=== PATIENT | male | born 1965 | race Caucasian/White ===

== ENCOUNTER 2024-12-27 15:34 | Outpatient (AMB) | payer OTHER, SELFPAY ==
--- NOTE | 2024-12-27 15:51 | A.OFFPC_ITS ---
Vital Signs 12/27/24 15:57 Height 6 ft 2 in Weight 270 lb 2 oz BMI 34.7 BP 98/70 Blood Pressure Location Lt brachial Position Sitting Respiration 16 Pulse 87 Pulse Source Pulse Oximeter Temp 97.3 F Temp Source Oral Pulse Oximetry (%) 93 Oxygen Delivery Method Room Air Intake Visit Reasons: Est. Care Intake Note: New patient visit Senior Technical Program Manager Required: No Allergies Penicillins Allergy (Unknown, Verified 12/27/24 15:51) Unknown adhesive bandage Allergy (Unknown, Uncoded 12/27/24 15:51) urticaria Tobacco use date assessed: 12/27/24 Dental Screening Dental Screen Date: 12/27/24 Did you have a dental visit in the last 12 months?: Yes Did you have a dental problem in the last 6 months where you did not have access to dental care?: No Was dental information given to patient?: Patient has dentist HPI HPI Comments History of Present Illness Details 59 year old male with a past medical his tory of diabetes, hypertension, hyperlipidemia presenting to [facility]. Was following with Dr Rizzo and Dr Wasserman DM: On glyburide, jardiance, ozempic. Last A1C was ~1 month ago. Believes it was 9%. On silvia 2 sensors. Did not bring reader today CV: on toprol 25mg, crestor 20mg, ASA Colon cancer: [facility] Dr Bailey ~ 1 year ago ROS CONSTITUTIONAL: Denies weight loss, fever and chills. HEENT: Denies changes in vision and hearing. RESPIRATORY: Denies SOB and cough. CV: Denies palpitations and CP GI: Denies abdominal pain, nausea, vomiting and diarrhea. : Denies dysuria and urinary frequency. MSK: Denies new myalgia and joint pain. SKIN: Denies rash and pruritus. NEUROLOGICAL: Denies headache PSYCHIATRIC: Denies recent changes in mood. PHYSICAL EXAM: GENERAL: Alert and oriented x 3. NAD EYES: EOMI. Anicteric. HENT: Moist mucous membranes. No scleral icterus. No cervical lymphadenopathy. LUNGS: Clear to auscultation bilaterally. CARDIOVASCULAR: Regular rate and rhythm. No murmur. No JVD. ABDOMEN: Soft, non-tender +bs EXTREMITIES: No edema. Non-tender. SKIN: No rashes or lesions. Warm. NEUROLOGIC: No focal neurological deficits. CN II-XII grossly intact PSYCHIATRIC: Cooperative. Appropriate mood and affect [facility] Surgical History No pertinent past surgical history Family History Mother Diabetes mellitus Myocardial infarction Skin cancer Sister Myocardial infarction Brother Myocardial infarction Social History Housing: House Patient Tobacco Use Status: Former Tobacco user (quit in 1999) Cigarette Packs Per Day: 2 Years Smoked: 20 e-Cigarette/Vaping Use: Never Used Second Hand Smoke Exposure: No service: No Current occupational status: employed Current occupation: fabrication technician Current occupational exposures/hazards: No Cognitive needs: No Hearing needs: No Vision needs: No Physical exam (Primary Care) Vital Signs: Last Vital Signs Temp 97.3 F 12/27/24 15:57 Pulse 87 12/27/24 15:57 Resp 16 12/27/24 15:57 BP 98/70 12/27/24 15:57 Pulse Ox 93 12/27/24 15:57 Oxygen Delivery Method Room Air 12/27/24 15:57 BMI result Body Mass Index 34.7 Tobacco/Smoking Status: Tobacco use Status Tobacco use date assessed 12/27/24 12/27/24 16:01 Patient Tobacco Use Status Former Tobacco user (quit in 12/27/24 16:01 1999) e-Cigarette/Vaping Use Never Used 12/27/24 16:01 Coding Level of Care Code New Pt Level 4 (17112) Complex EM visit Add On G2211 Diagnoses Type 2 diabetes mellitus with hyperglycemia, without long-term current use of insulin E11.65 Diabetes mellitus type: type 2 Diabetes mellitus long-term insulin use: without long-term use Diabetes mellitus complication status: with hyperglycemia Primary hypertension I10 Hypertension type: primary hypertension Hyperlipidemia, unspecified hyperlipidemia type E78.5 Hyperlipidemia type: unspecified Assessment & Plan Assessment & Plan (1) Diabetes: Code(s): E11.9 - Type 2 diabetes mellitus without complications Category: Medical Qualifiers: Diabetes mellitus type: type 2 Diabetes mellitus intermediate school teacher insulin use: without long-term use Diabetes mellitus complication status: with hyperglycemia Qualified Code(s): E11.65 - Type 2 diabetes mellitus with hyperglycemia (2) Hypertension: Code(s): I10 - Essential (primary) hypertension Category: Medical Qualifiers: Hypertension type: primary hypertension Qualified Code(s): I10 - Essential (primary) hypertension (3) Hyperlipidemia: Code(s): E78.5 - Hyperlipidemia, unspecified Category: Medical Qualifiers: Hyperlipidemia type: unspecified Qualified Code(s): E78.5 - Hyperlipidemia, unspecified Plan 59 year old to establish care DM uncontrolled-increase ozempic to 2mg weekly Continue jardiance, glyburide. Recheck A1C 2 months. bring meter HTN well controlled on current medications. Family history of early CAD/[place]-EKG next appt Orders: Orders Complete Blood Count Auto Diff Today E11.9 - Type 2 diabetes mellitus without complications, E78.5 - Hyperlipidemia, unspecified, I10 - Essential (primary) hypertension, Z12.5 - Encounter for screening for malignant neoplasm of prostate Comprehensive Met. Panel Today E11.9 - Type 2 diabetes mellitus without complications, E78.5 - Hyperlipidemia, unspecified, I10 - Essential (primary) hypertension, Z12.5 - Encounter for screening for malignant neoplasm of prostate Lipid Panel Today E11.9 - Type 2 diabetes mellitus without complications, E78.5 - Hyperlipidemia, unspecified, I10 - Essential (primary) hypertension, Z12.5 - Encounter for screening for malignant neoplasm of prostate Prostate Specific Antigen Today E11.9 - Type 2 diabetes mellitus without complications, E78.5 - Hyperlipidemia, unspecified, I10 - Essential (primary) hypertension, Z12.5 - Encounter for screening for malignant neoplasm of prostate Referrals Gastroenterology Referral Z12.11 - Encounter for screening for malignant neoplasm of colon Medications: New semaglutide (Ozempic) 2 mg (0.75 mL) subcut QWEEK 9 mL 3RF FreeStyle Silvia 2 Plus Sensor (blood-glucose sensor) every 15 days 6 ea 3RF NS E11.9 - Type 2 diabetes mellitus without complications, I10 - Essential (primary) hypertension
[2024-12-27 15:57] VITALS: BP 98/70; PULSE 87; RESP 16; TEMP 36.3; O2SAT 93; BMI 34.7
--- OUTSIDE RECORDS SUMMARY | 2024-12-27 18:05 | XMS_ITS | Clinical Summary ---
Author Organization [address] Address [address] [place] [phone] Phone Care Team Providers Care Glost Kiln Operator Name Role Phone Unavailable Primary Care Provider Unavailabl e Allergies Active Allergy Reactions Criticality Noted Date Comments Adhesive Hives,Rash 12/24/2010 Other reaction(s): Rash/Dermatitis Penicillin G Swelling 12/24/2010 Other reaction(s): Numbness, tingling or swelling of the lips, tongue or mouth Medications losartan (COZAAR) 50 mg tablet Take 1 tablet (50 mg total) by mouth 1 (one) time each day. 11/02/2023 Active LORATADINE ORAL Take by mouth. Active metoprolol succinate (TOPROL-XL) 25 mg 24 hr tablet Take 1 tablet (25 mg total) by mouth 1 (one) time each day. 07/22/2023 Active rosuvastatin (CRESTOR) 20 mg tablet Take 1 tablet (20 mg total) by mouth 1 (one) time each day. 07/02/2023 Active ASPIRIN ORAL Take by mouth. Active Jardiance 25 mg tablet TAKE ONE TABLET BY MOUTH EVERY DAY 90 tablet 1 07/18/2024 Active glyBURIDE (DIABETA) 5 mg tablet Take 1 tablet (5 mg total) by mouth 1 (one) time each day. 90 tablet 1 07/18/2024 Active FreeStyle Silvia 14 Day Sensor kit 1 EA. 07/26/2024 A ctive semaglutide (OZEMPIC) 1 mg/dose (4 mg/3 mL) injection penIndications:Ty pe 2 DM with CKD stage 3 and hypertension (CMS/HCC V24, CMS/HCC V28) Use 1mg once weekly 3 mL 2 09/20/2024 Active Active Problems Problem Noted Date Diagnosed Date CKD (chronic kidney disease) stage 2, GFR 60-89 ml/min 07/27/2024 Essential (primary) hypertension 09/22/2023 Hemothorax on right 09/22/2023 Overview (04/14/2024): spontaneous x 2 AZAEL (obstructive sleep apnea) 09/22/2023 Pure hypercholesterolemia 09/22/2023 Type 2 DM with CKD stage 3 a nd hypertension (CMS/HCC V24, CMS/HCC V28) 09/22/2023 Depression 12/24/2010 Overview (04/14/2024): Receiving therapy Encounters Date Type Department Care Team Description 12/26/2024 Telephone Endocrinology [address] [phone] Sonia Dexter PA prior authorization (ozempic) 12/14/2024 Telephone Pulmonolgy [address] [place] [phone] Malik Encarnacion MD dme request 10/05/2024 Telephone Endocrinology [address] [phone] Sonia Dexter PA prior auth 09/26/2024 Telephone Endocrinology [address] [phone] Sonia Dexter PA Medication Problem from Last 3 Months Surgical History Surgery Date Site/Laterality Comments OTHER SURGICAL HISTORY PROCEDURE: OR RPR PARAESOPH HIATAL HERNIA THORCOABDOM W/MESH KNEE ARTHROSCOPY W/ MENISCAL REPAIR PROCEDURE: OR ARTHROSCOPY KNEE W/MENISCUS RPR MEDIAL/LATERAL; COMMENT: left knee Medical History Medical History Date Comments Hemothorax on right DX:Hemothora x on right; COMMENT: spontaneous x 2 AZAEL (obstructive sleep apnea) DX :AZAEL (obstructive sleep apnea) Essential (primary) hypertension DX:Essential (primary) hypertension Type 2 DM with CKD stage 3 a nd hypertension (CMS/HCC V24, CMS/HCC V28) DX:Type 2 DM w ith CKD stage 3 and hypertension (HCC) Family History Relation Name Status Comments Father Alive Brain tmr benig n, CAD s/p quadruple bypass Mother Alive DM 2, CAD with first [place] in 60s Sister Alive DM 2 Social History Tobacco Use Types Packs/Day Years Used Date Smoking Tobacco: Former Cigarettes 0 07/13/1978 - 07/13/1985 Tobacco Cessation:Counseling Given: Not Answered Alcohol Use Standard Drinks/Week Comments Not Currently 0 (1 standard drink = 0.6 oz pur e alcohol) Sex and Gender Information Value Date Recorded Sex Assigned at Not on file Legal Sex Male 2:53 AM EST Gender Identity Not on file Sexual Orientation Not on file Obstetrics History Last Filed Vital Signs Vital Sign Reading Time Taken Comments Blood Pressure 129/83 09/20/2024 4:24 PM EDT Pulse 94 09/20/2024 4:24 PM EDT Temperature 36.2 ??C (97.2 ??F) 09/20/2024 4:24 PM ED T Respiratory Rate - - Oxygen Saturation 95% 09/20/2024 4:24 PM EDT Inhaled Oxygen Concentration - - Weight 125 kg (274 lb 12.8 oz) 09/20/2024 4:24 P M EDT Height 188 cm (6' 2 ) 09/20/2024 4:24 PM EDT Body Mass Index 35.28 09/20/2024 4:24 PM EDT Plan of Treatment Upcoming Encounters Date Type Department Care Team (Late st Contact Info) Description 02/15/2025 3:15 PM EDT Office Visit Nephrology [address] [phone] Lane Veloz MD [address] [phone] 02/28/2025 8:30 AM EDT Office Visit Pulmonolgy - [place] [address] [phone] Malik Encarnacion MD 175 [facility] [address] [place] [address] Health Maintenance Due Date Last Done Comments Hepatitis B Vaccines (1 of 3 - 19+ 3-dose series) 1984 Pneumococcal Vaccine: 50+ Years (1 of 2 - PCV) 1984 Pneumococcal Vaccine: Pediatrics (0 to 5 Years) and At-Risk Patients (6 to 64 Years) (1 of 2 - PCV) 1984 Zoster Vaccines (1 of 2) 1984 COVID-19 Vaccine (3 - Modern a risk series) 11/22/2020 10/25/2020, 09/27/2020 Depression Screening 06/15/2022 HIV Screening 06/15/2022 Hepatitis C Screening 06/15/2022 Social Influencers of Health Screening 06/15/2022 Diabetes: Annual Retina Eye Exam 07/28/2024 07/28/2023 Diabetes: Blood Sugar Contro l Test (HGBA1C) 08/20/2024 02/18/2024, 02/18/2024 Diabetes: Annual Urine Albumin-Creatinine Ratio (uACR) 10/15/2024 10/16/2023 Diabetes: Annual GFR (Glomerular Filtration Rate) 02/17/2025 02/18/2024, 02/18/2024 Hypertension/CHF/CAD Annual BMP Blood Test 02/17/2025 02/18/2024, 02/18/2024 Diabetes: Annual Foot Exam 03/02/2025 03/02/2024 Influenza Vaccine (Season Ended) 2025 05/30/2022 Cholesterol Screening (Lipid Panel) 10/15/2028 10/16/2023 Colorectal Cancer Screening: Colonoscopy 12/19/2031 12/18/2021 DTaP,Tdap,and Td Vaccines (2 - Td or Tdap) 12/10/2032 12/10/2022 RSV Immunization Adult Patients (1 - 1-dose 75+ series) 2040 HIB Vaccines Aged Out No longer eligi ble based on patient's age to complete this topic HPV Vaccines Aged Out No longer eligi ble based on patient's age to complete this topic Hepatitis A Vaccines Aged Out No long er eligible based on patient's age to complete this topic IPV Vaccines Aged Out No longer eligi ble based on patient's age to complete this topic MMR Vaccines Aged Out No longer eligi ble based on patient's age to complete this topic Meningococcal ACWY Vaccine Aged Out N o longer eligible based on patient's age to complete this topic Meningococcal B Vaccine Aged Out No l onger eligible based on patient's age to complete this topic RSV Immunization Patients Under 20 months Aged Out No longer eligible b ased on patient's age to complete this topic Varicella Vaccines Aged Out No longer eligible based on patient's age to complete this topic Procedures Procedure Name Priority Date/Time Associated Diagnosis Comments DIABETES FOOT EXAM Routine 03/02/2024 ANNUAL BMP BLOOD TEST Routine 02/18/2024 HEMOGLOBIN A1C Routine 02/18/2024 URINE ALBUMIN CREATININE RATIO Routine 10/16/2023 LIPID PANEL Routine 10/16/2023 DIABETES EYE EXAM Routine 07/28/2023 COLONOSCOPY Routine 12/18/2021 from Last 3 Months or Most Recently Relevant to Health Maintenance Results * Diabetes Foot Exam (03/02/2024) Pathologist [facility] Diabetes: Annual Foot Exam Abstracted Result [facility] Provider HEALTH MAINTENANCE Final Result * Annual BMP Blood Test (02/18/2024) Pathologist [facility] Annual BMP Blood Test Abstracted Result [facility] Provider HEALTH MAINTENANCE Final Result * (ABNORMAL) Hemoglobin A1c (02/18/2024) [facility] Hemoglobin A1C 10.3(A) <=6.5 % Blood Venous blood specimen / Unknown Historical Provider LAB BLOOD ORDERABLES Willa l Result * Urine Albumin Creatinine Ratio (10/16/2023) Pathologist [facility] Urine Albumin Creatinine Ratio Abstracted [facility] Provider HEALTH MAINTENANCE Final Result * (ABNORMAL) Lipid panel (10/16/2023) [facility] LDL/HDL Ratio 4 0 - 4 Triglycerides 268(A) 0 - 150 mg/dL Cholesterol 155 0 - 200 mg/dL HDL 37(A) >=40 mg/dL LDL Cholesterol 65 0 - 100 mg/dL Blood Venous blood specimen / Unknown Historical Provider LAB BLOOD ORDERABLES Willa l Result * Diabetes Eye Exam (07/28/2023) Diabetes: Annual Retina Eye Exam Abstracted Historical Provider HEALTH MAINTENANCE Final Result * Colonoscopy (12/18/2021) Colonoscopy Abstracted, No Interpretation Anatomical Region Laterality Modality Other Historical Provider HEALTH MAINTENANCE Final Result from Last 3 Months or Most Recently Relevant to Health Maintenance [place] [phone] [facility]
== END 2024-12-27 16:20 | disposition home or self-care (01) ==
LOC: HO.HMCFM 15:35
PROVIDERS: Visit Provider Internal Medicine
DX: E11.65 Type 2 diabetes mellitus with hyperglycemia (principal); I10 Essential (primary) hypertension; E78.5 Hyperlipidemia, unspecified

== ENCOUNTER 2025-02-28 09:28 | Outpatient (REF) | payer OTHER, SELFPAY ==
--- OUTSIDE RECORDS SUMMARY | 2025-02-28 10:30 | XMS_ITS | Clinical Summary ---
Author Organization [facility] Address [address] [place] [address] Care Team Providers Care Adoption Manager Name Role Phone Alma Wasserman MD Primary Care Provider [phone] Allergies Active Allergy Reactions Criticality Noted Date Comments Penicillin G Swelling 12/24/2010 Other reaction(s): Numbness, tingling or swelling of the lips, tongue or mouth Penicillins Anaphylaxis High 07/08/2021 Tape Hives 12/24/2010 Other reaction(s): Rash/Dermatitis Medications Medication Sig Dispensed Refills Start Date End Date Status dulaglutide (Trulicity) 0.75 MG/0.5ML subcutaneous pen-injector Inject 0.75 mg under the skin once a week. 0 Active aspirin 81 MG EC tablet Take 81 mg by mouth daily. 0 Active losartan (COZAAR) 100 MG tablet Take 100 mg by mouth daily. 0 Active loratadine (Claritin) 10 MG tablet Take 10 mg by mouth daily. 0 Active Jardiance 10 MG tablet Take 10 mg by mouth daily. 0 11/29/2021 Active Active Problems No known active problems Social History Tobacco Use Types Packs/Day Years Used Date Smoking Tobacco: Former Cigarettes Q uit: 07/13/1999 Smokeless Tobacco: Never Alcohol Use Standard Drinks/Week Comments Not Currently 0 (1 standard drink = 0.6 oz pur e alcohol) Sex and Gender Information Value Date Recorded Sex Assigned at Not on file Gender Identity Not on file Sexual Orientation Not on file Job Start Date Occupation Industry Not on file Not on file Not on file Last Filed Vital Signs Vital Sign Reading Time Taken Comments Blood Pressure 114/72 01/06/2022 4:04 PM EDT Pulse 97 01/06/2022 4:04 PM EDT Temperature 36.3 C (97.4 F) 01/06/2022 4:04 PM EDT Respiratory Rate - - Oxygen Saturation 99% 01/06/2022 4:04 PM EDT Inhaled Oxygen Concentration - - Weight 117.9 kg (260 lb) 01/06/2022 4:04 PM EDT Height 188 cm (6' 2 ) 01/06/2022 4:04 PM EDT Body Mass Index 33.38 01/06/2022 4:04 PM EDT Plan of Treatment Health Maintenance Due Date Last Done Comments Hepatitis B Vaccines (1 of 3 - 3-dose series) 1965 Hepatitis C Screening 1965 COVID-19 Vaccine (#1) 06/17/1966 Depression Screening 1977 BMI Counseling 12/17/1983 Preventative Health Evaluation 12/17/1983 DTap / Tdap / Td (1 - Tdap) 1984 Colon Cancer Screening (Colonoscopy) 2010 Shingrix-Zoster Vaccine (1 of 2) 12/17/2015 Influenza Vaccine (#1) 2025 Pneumococcal Vaccine Aged Out No long er eligible based on patient's age to complete this topic RSV Ped < 20 months Aged Out No longe r eligible based on patient's age to complete this topic Care Teams Adoption Manager Relationship Specialty Start Date End Date [facility], Alma A, MD [address] [place] [address] PCP - General Internal Medicine 07/23/17
--- OUTSIDE RECORDS SUMMARY | 2025-02-28 10:30 | XMS_ITS | Clinical Summary ---
Author Organization [address] Address [address] [place] [phone] Phone Care Team Providers Care Developer Programmer Analyst Name Role Phone Ольга Gayle MD Primary Care Provider [phone] Allergies Active Allergy Reactions Criticality Noted Date Comments Adhesive Hives,Rash 12/24/2010 Other reaction(s): Rash/Dermatitis Penicillin G Swelling 12/24/2010 Other reaction(s): Numbness, tingling or swelling of the lips, tongue or mouth Medications losartan (COZAAR) 50 mg tablet Take 1 tablet (50 mg total) by mouth 1 (one) time each day. 4 Active LORATADINE ORAL Take by mouth. Active metoprolol succinate (TOPROL-XL) 25 mg 24 hr tablet Take 1 tablet (25 mg total) by mouth 1 (one) time each day. 4 Active rosuvastatin (CRESTOR) 20 mg tablet Take 1 tablet (20 mg total) by mouth 1 (one) time each day. 3 Active ASPIRIN ORAL Take by mouth. Active Jardiance 25 mg tablet TAKE ONE TABLET BY MOUTH EVERY DAY 90 tablet 1 5 Active glyBURIDE (DIABETA) 5 mg tablet Take 1 tablet (5 mg total) by mouth 1 (one) time each day. 90 tablet 1 5 Active FreeStyle Silvia 14 Day Sensor kit 1 EA. 5 Active semaglutide (OZEMPIC) 1 mg/dose (4 mg/3 mL) injection penIndications:Ty pe 2 DM with CKD stage 3 and hypertension (CMS/HCC V24, CMS/HCC V28) Use 1mg once weekly 3 mL 2 5 Active FreeStyle Silvia 2 Plus Sensor device APPLY AND REPLACE EVERY 15 DAYS 5 Active Active Problems Problem Noted Date Diagnosed [...] Encounters Date Type Department Care Team Description [facility]/07[facility] [address] [phone] Malik Encarnacion MD durable medical equipment 12/26/2024 Telephone Endocrinology - [place] [address] [place] [phone] Sonia Dexter PA prior authorization (ozempic) 12/14/2024 Telephone Pulmonolgy [facility] [address] [phone] Malik Encarnacion MD dme request from Last 3 Months Surgical History Surgery Date Site/Laterality Comments OTHER SURGICAL HISTORY PROCEDURE: [place] RPR PARAESOPH HIATAL HERNIA THORCOABDOM W/MESH KNEE ARTHROSCOPY W/ MENISCAL REPAIR PROCEDURE: MI ARTHROSCOPY KNEE W/MENISCUS RPR MEDIAL/LATERAL; COMMENT: left [...] Name Status Comments Father Alive Brain tmr kim rolon, CAD s/p quadruple bypass Mother Alive DM 2, CAD with first [place] in 60s Sister Alive DM 2 Social [...] 94 09/20/2024 4:24 PM EDT Temperature 36.2 C (97.2 F) 09/20/2024 4:24 PM EDT Respiratory Rate - - Oxygen Saturation 95% 09/20/2024 4:24 PM EDT Inhaled Oxygen Concentration - - Weight 125 kg (274 lb 12.8 oz) 09/20/2024 4:24 P M EDT Height 188 cm (6' 2 ) 09/20/2024 4:24 PM EDT Body Mass Index 35.28 09/20/2024 4:24 PM EDT Plan of Treatment Upcoming Encounters Date Type Department Care Team (Late st Contact Info) Description 08/16/2025 3:00 PM EST Office Visit Nephrology [facility] [address] [place] [phone] [address] Veloz MD 100 [facility] [address] [place] [address] Health Maintenance Due Date Last Done Comments Hepatitis B Vaccines (1 of 3 - 19+ 3-dose series) 1984 Pneumococcal Vaccine: 50+ Years (1 of 2 - PCV) 1984 Zoster Vaccines (1 of 2) 1984 COVID-19 Vaccine (3 - Modern a risk series) 11/22/2020 10/25/2020, 09/27/2020 HIV Screening 06/15/2022 Hepatitis C Screening 06/15/2022 Social Influencers of Health Screening 06/15/2022 Depression Screening 07/13/2024 Diabetes: Annual Retina Eye Exam 07/28/2024 07/28/2023 Diabetes: Blood Sugar Contro l Test (HGBA1C) 08/20/2024 02/18/2024, 02/18/2024 Diabetes: Annual Urine Albumin-Creatinine Ratio (uACR) 10/15/2024 10/16/2023 Diabetes: Annual GFR (Glomerular Filtration Rate) 02/17/2025 02/18/2024, 02/18/2024 Hypertension/CHF/CAD Annual BMP Blood Test 02/17/2025 02/18/2024, 02/18/2024 Diabetes: Annual Foot Exam 03/02/2025 03/02/2024 Influenza Vaccine (#1) 2025 05/30/2022 Cholesterol Screening (Lipid Panel) 10/15/2028 [...] Maintenance Results * Diabetes Foot Exam (03/02/2024) [facility] Diabetes: Annual Foot Exam Abstracted Result [facility] Provider HEALTH MAINTENANCE Final Result * Annual BMP Blood Test (02/18/2024) [facility] Annual BMP Blood Test Abstracted Result [facility] HEALTH MAINTENANCE Final Result * (ABNORMAL) Hemoglobin A1c (02/18/2024) [facility] Hemoglobin A1C 10.3(A) <=6.5 % Blood Venous blood specimen / Unknown Result [facility] Provider LAB BLOOD ORDERABLES Willa l Result * Urine Albumin Creatinine Ratio (10/16/2023) [facility] Urine Albumin Creatinine Ratio Abstracted Result [facility] Provider HEALTH MAINTENANCE Final Result * (ABNORMAL) Lipid panel (10/16/2023) [facility] LDL/HDL Ratio 4 0 - 4 Triglycerides 268(A) 0 - 150 mg/dL Cholesterol 155 0 - 200 mg/dL HDL 37(A) >=40 mg/dL LDL Cholesterol 65 0 - 100 mg/dL Blood Venous blood specimen / Unknown Result [facility] Provider LAB BLOOD ORDERABLES Willa l Result * Diabetes Eye Exam (07/28/2023) [facility] Diabetes: Annual Retina Eye Exam Abstracted us Historical Provider HEALTH MAINTENANCE Final Result * Colonoscopy (12/18/2021) [facility] Colonoscopy Abstracted, No Interpretation Anatomical Region Laterality Modality Other us Historical Provider HEALTH MAINTENANCE Final Result from Last 3 Months or Most Recently Relevant to Health Maintenance [place] [phone] [employer] [facility] [facility] Care Teams Developer Programmer Analyst Relationship Specialty Start Date End Date Ольга Gayle MD [address] [place] [phone] PCP - General Internal Medicine 02/14/25
[2025-02-28 11:06] LABS: MANUAL DIFF FLAG NO
[2025-02-28 11:15] LABS: Hematocrit 46.2 % (42.0-52.0); Hemoglobin 15.1 g/dl (14.0-18.0); Imm Gran Abs Auto 0.02 X10*3/uL (0.00-0.03); Imm Gran Pct Auto 0.3 % (0.0-0.4); Lymphocytes Absolute Auto 1.9 X10*3/uL (1.2-4.9); Mean Corpuscular HGB Conc 32.7 g/dl (31.0-36.0); Mean Corpuscular Hemoglobin 29.4 pg (27.0-33.0); Mean Corpuscular Volume 89.9 fL (80.0-98.0); NRBC Abs Auto 0.000 X10*3/uL (0.0-0.012); NRBC Pct Auto 0.0 /100WBC (0.0-0.2); Platelet Count 251 X10*3/uL (160-400); Red Blood Count 5.14 X10*6/uL (4.60-5.80); White Blood Count 7.8 X10*3/uL (4.8-10.8)
[2025-02-28 12:02] LABS: Prostate Specific Antigen 3.01 ng/mL (<0.05-4.0)
[2025-02-28 12:12] LABS: Alanine Aminotransferase 47 U/L (0-40); Albumin Level 4.4 g/dL (3.5-5.0); Alkaline Phosphatase 78 U/L (39-117); Anion Gap 14 (12-20); Aspartate Amino Transferase 26 U/L (5-37); Blood Urea Nitrogen 24 mg/dL (9-16); Calcium 9.5 mg/dL (8.4-10.2); Carbon Dioxide 25 mmol/L (22-29); Chloride 105 mmol/L (96-108); Cholesterol 155 mg/dL (<200); Estimated Glomerular Filt Rate > 60; HDL Cholesterol 31 mg/dL (>40); Potassium 3.8 mmol/L (3.3-5.1); Sodium 140 mmol/L (135-145); Total Protein 7.0 g/dL (6.5-8.0); Triglycerides 540 mg/dL (<150)
== END 2025-02-28 09:29 | disposition home or self-care (01) ==
LOC: HO.WFDLDS 09:28
PROVIDERS: Visit Provider Internal Medicine
DX: E11.9 Type 2 diabetes mellitus without complications (principal); I10 Essential (primary) hypertension; E78.5 Hyperlipidemia, unspecified; Z12.5 Encounter for screening for malignant neoplasm of prostate
CPT/HCPCS: 36415; 80053; 80061; 84153; 85025

== ENCOUNTER 2025-03-06 15:07 | Outpatient (AMB) | payer OTHER, SELFPAY ==
--- NOTE | 2025-03-06 15:20 | A.OFFPC_ITS ---
Vital Signs 03/06/25 15:23 Height 6 ft 2 in Weight 266 lb 4 oz BMI 34.2 BP 112/62 Blood Pressure Location Lt femoral Position Sitting Respiration 16 Pulse 78 Pulse Source Pulse Oximeter Pulse Oximetry (%) 94 Oxygen Delivery Method Room Air Intake Visit Reasons: DM Intake Note: Diabetes follow up Welt Pocket Machine Operator Required: No Allergies Penicillins Allergy (Unknown, Verified 03/06/25 15:22) Unknown adhesive bandage Allergy (Unknown, Uncoded 03/06/25 15:22) urticaria Tobacco use date assessed: 03/06/25 Dental Screening Dental Screen Date: 12/27/24 HPI HPI Comments History of Present Illness Details 59 year old male with a past medical his tory of diabetes, hypertension, hyperlipidemia presenting for follow up DM: On glyburide, jardiance, ozempic-this was increased at last visit to 2mg. A1C is 7.3% from 9%. Last A1C was ~1 month ago. Believes it was 9%. On valerie 2 sensors. Did not bring reader today. Lost 4 pounds since his last visit. CV: on toprol 25mg, crestor 20mg, ASA Colon cancer: [facility] ~ 1 year ago ROS CONSTITUTIONAL: Denies weight loss, fever and chills. HEENT: Denies changes in vision and hearing. RESPIRATORY: Denies SOB and cough. CV: Denies palpitations and CP GI: Denies abdominal pain, nausea, vomiting and diarrhea. : Denies dysuria and urinary frequency. MSK: Denies new myalgia and joint pain. SKIN: Denies rash and pruritus. NEUROLOGICAL: Denies headache PSYCHIATRIC: Denies recent changes in mood. PHYSICAL EXAM: GENERAL: Alert and oriented x 3. NAD EYES: EOMI. Anicteric. HENT: Moist mucous membranes. No scleral icterus. No cervical lymphadenopathy. LUNGS: Clear to auscultation bilaterally. CARDIOVASCULAR: Regular rate and rhythm. No murmur. No JVD. ABDOMEN: Soft, non-tender +bs EXTREMITIES: No edema. Non-tender. SKIN: No rashes or lesions. Warm. NEUROLOGIC: No focal neurological deficits. CN II-XII grossly intact PSYCHIATRIC: Cooperative. Appropriate mood and affect [facility] Surgical History No pertinent past surgical history Family History Mother Diabetes mellitus Myocardial infarction Skin cancer Sister Myocardial infarction Brother Myocardial infarction Social History Housing: House Patient Tobacco Use Status: Former Tobacco user Cigarette Packs Per Day: 2 Years Smoked: 20 e-Cigarette/Vaping Use: Never Used Second Hand Smoke Exposure: No service: No Current occupational status: employed Current occupation: data center technician Current occupational exposures/hazards: No Cognitive needs: No Hearing needs: No Vision needs: No Questionnaire PHQ-9 Over the last 2 weeks, how often have you been bothered by any of the following problems? 1. Little interest or pleasure in doing things: not at all 2. Feeling down, depressed, or hopeless: not at all 3. Trouble falling or staying asleep, or sleeping too much: not at all 4. Feeling tired or having little energy: not at all 5. Poor appetite or overeating: not at all 6. Feeling bad about yourself - or that you are a failure or have let yourself or your family down: not at all 7. Trouble concentrating on things, such as reading the newspaper or watching television: not at all 8. Moving or speaking so slowly that other people could have noticed. Or the opposite - being so fidgety or restless that you have been moving around a lot more than usual: not at all 9. Thoughts that you would be better off or of hurting yourself in some way: not at all Total score: 0 Source: Developed by Drs. Kamlesh Castañeda, Alie Lopez, Camron Alanis and colleagues, with an educational yomaira from [employer]. Thrive Questionnaire Date Thrive assessed: 02/28/25 I am a: Patient What is your living situation today?: I have a steady place to live Within the past 12 months, did the food you bought not last and you didn't have the money to get more?: Often true Within the past 12 months, did you worry whether your food would run out before you got money to buy more?: Never true Do you have trouble paying for medicines?: No Do you have trouble getting transportation to medical appointments?: No Do you have trouble paying your heating and electricity bill?: No Do you have trouble taking care of your child, family member or friend?: No Do you have trouble with day-to-day activities such as bathing, preparing meals, shopping, managing finances, etc.?: No Are you currently unemployed and looking for a job?: No Are you interested in more education?: No Please select the resources that you would like help with: None Currently or been in a relationship where the following occur: No concerns reported THRIVE Score: 1 AUDIT C Alcohol Use Questionnaire (AUDIT-C) 1. How often do you have a drink containing alcohol?: Monthly or less 2. How many drinks containing alcohol do you have on a typical day when you are drinking?: 1 or 2 3. How often do you have six or more drinks on one occasion?: Never Total Score: 1 ALFREDITO-7 AMB Questionnaire ALFREDITO-7 Feeling nervous, anxious, or on edge: 0 = Not at all Not being able to stop or control worryin = Not at all Worrying too much about different things: 0 = Not at all Trouble relaxin = Not at all Being so restless that it is hard to sit still: 0 = Not at all Becoming easily annoyed or irritable: 0 = Not at all Feeling afraid as if something awful might happen: 0 = Not at all Total ALFREDITO-7 score (0-4 normal; 5-9 mild; 10-14 moderate; 15-21 severe): 0 Source: Developed by Drs. Kamlesh Castañeda, Alie Lopez, Camron Alanis and colleagues, with an educational yomaira from [employer]. Physical exam (Primary Care) Vital Signs: Last Vital Signs Pulse 78 03/06/25 15:23 Resp 16 03/06/25 15:23 BP 112/62 03/06/25 15:23 Pulse Ox 94 03/06/25 15:23 Oxygen Delivery Method Room Air 03/06/25 15:23 BMI result Body Mass Index 34.2 Tobacco/Smoking Status: Tobacco use Status Tobacco use date assessed 03/06/25 03/06/25 15:26 Patient Tobacco Use Status Former Tobacco user 03/06/25 15:26 e-Cigarette/Vaping Use Never Used 03/06/25 15:26 PHQ-9: PHQ-9 Score PHQ-9: Total score 0 03/06/25 15:26 Thrive Assessment: Date of Thrive Assessment Date Thrive assessed 02/28/25 03/06/25 15:26 Currently or been in a relationship where the following occur: No concerns reported Results AMB Hemoglobin A1c AMB Hemoglobin A1c 7.3 % Last Edit by Katy Almendarez CMA on 03/06/25 15:37 Coding Assessment & Plan Assessment & Plan Orders: Orders Hemoglobin A1c Today E11.65 - Type 2 diabetes mellitus with hyperglycemia, E78.5 - Hyperlipidemia, unspecified, I10 - Essential (primary) hypertension AMB Hemoglobin A1c Today E11.65 - Type 2 diabetes mellitus with hyperglycemia Comprehensive Met. Panel Today E11.65 - Type 2 diabetes mellitus with hyperglycemia, E78.5 - Hyperlipidemia, unspecified, I10 - Essential (primary) hypertension Lipid Panel Today E11.65 - Type 2 diabetes mellitus with hyperglycemia, E78.5 - Hyperlipidemia, unspecified, I10 - Essential (primary) hypertension Microalbumin, Random (w Creat) Today E11.65 - Type 2 diabetes mellitus with hyperglycemia, E78.5 - Hyperlipidemia, unspecified, I10 - Essential (primary) hypertension
[2025-03-06 15:23] VITALS: BP 112/62; PULSE 78; RESP 16; O2SAT 94; BMI 34.2
--- OUTSIDE RECORDS SUMMARY | 2025-03-06 16:48 | XMS_ITS | Encounter Summary ---
Author Organization [facility] Address [address] [place] [phone] Care Team Providers Care Logistics Director Name Role Phone Ольга Gayle MD Primary Care Provider [phone] Reason for Visit * Reason Onset Date Comments durable medical equipment 02/07/2025 Encounter Details Date Type Department Care Team (Late st Contact Info) Description 02/07/2025 Telephone [facility] [address] [facility] [address] [place] [address] Malik Encarnacion MD [address] [place] [phone] Social History Tobacco Use Types Packs/Day Years Used Date Smoking Tobacco: Former Cigarettes 0 07/13/1978 - 07/13/1985 Alcohol Use Standard Drinks/Week Comments Not Currently 0 (1 standard drink = 0.6 oz pur e alcohol) Sex and Gender Information Value Date Recorded Sex Assigned at Not on file Legal Sex Male 2:53 AM EST Gender Identity Not on file Sexual Orientation Not on file documented as of this encounter Progress Notes * Cheyanne Townsend MA - 02/07/2025 12:57 PM EDT Order printed * Pinky Abarca - 02/07/2025 9:08 AM EDT Confirmation of order received via fax from [facility] [employer] Forms on patient chart (ONBASE) documented in this encounter Plan of Treatment Upcoming Encounters Date Type Department Care Team (Late st Contact Info) Description 08/16/2025 3:00 PM EST Office Visit Nephrology - [place] [address] [place] [address] [address] Veloz MD 100 [facility] [address] [place] [address] documented as of this encounter Visit Diagnoses Not on filedocumented in this encounter Care Teams Logistics Director Relationship Specialty Start Date End Date Ольга Gayle MD [address] [place] [address] PCP - General Internal Medicine 02/14/25 documented as of this encounter
--- OUTSIDE RECORDS SUMMARY | 2025-03-06 16:48 | XMS_ITS | Clinical Summary ---
Author Organization [facility] Address [address] [place] [address] Care Team Providers Care Manufacturing Accountant Name Role Phone Alma Wasserman MD Primary Care Provider [phone] Allergies Active Allergy Reactions Criticality Noted Date [...] age to complete this topic Care Teams Manufacturing Accountant Relationship Specialty Start Date End Date [facility], Alma A, MD [address] [place] [address] PCP - General Internal Medicine 07/23/17
--- OUTSIDE RECORDS SUMMARY | 2025-03-06 16:48 | XMS_ITS | Clinical Summary ---
Author Organization [address] Address [address] [place] [phone] Phone Care Team Providers Care Oyster Bed Worker Name Role Phone Ольга Gayle MD Primary Care Provider [phone] Allergies Active Allergy Reactions Criticality Noted Date [...] with CKD stage 3 a nd hypertension ([facility]/HCC V24, CMS/HCC V28) 09/22/2023 Depression 12/24/2010 Overview (04/14/2024): Receiving therapy Encounters Date Type Department Care Team Description 02/07[facility] [address] [phone] Malik Encarnacion MD 12/26/2024 Telephone [facility] [address] [place] [address] Sonia Dexter PA 12/14/2024 Telephone Pulmon[facility] [address] [phone] Malik Encarnacion MD from Last 3 Months Surgical History Surgery Date Site/Laterality Comments OTHER SURGICAL HISTORY PROCEDURE: [place] RPR PARAESOPH HIATAL HERNIA THORCOABDOM W/MESH KNEE ARTHROSCOPY W/ MENISCAL REPAIR PROCEDURE: [place] ARTHROSCOPY KNEE W/MENISCUS RPR MEDIAL/LATERAL; COMMENT: left [...] Mother Alive DM 2, CAD with first OR in 60s Sister Alive DM 2 Social [...] 3:00 PM EST Office Visit Nephrology - [place] [address] [place] [address] [address] Veloz MD 100 [facility] [address] [place] [address] Health Maintenance Due Date Last [...] Maintenance Results * Diabetes Foot Exam (03/02/2024) [facility] Diabetes: Annual Foot Exam Abstracted Result [facility] HEALTH MAINTENANCE Final Result * Annual BMP Blood Test (02/18/2024) [facility] Annual BMP Blood Test Abstracted Result [facility] HEALTH MAINTENANCE Final Result * (ABNORMAL) Hemoglobin A1c (02/18/2024) [facility] Hemoglobin A1C 10.3(A) <=6.5 % Blood Venous blood specimen / Unknown Result [facility] LAB BLOOD ORDERABLES Willa l Result * Urine Albumin Creatinine Ratio (10/16/2023) [facility] Urine Albumin Creatinine Ratio Abstracted Result [facility] HEALTH MAINTENANCE Final Result * (ABNORMAL) Lipid panel (10/16/2023) [facility] LDL/HDL Ratio 4 0 - 4 Triglycerides 268(A) 0 - 150 mg/dL Cholesterol 155 0 - 200 mg/dL HDL 37(A) >=40 mg/dL LDL Cholesterol 65 0 - 100 mg/dL Blood Venous blood specimen / Unknown Result [facility] LAB BLOOD ORDERABLES Willa l Result * Diabetes Eye Exam (07/28/2023) [facility] Diabetes: Annual Retina Eye Exam Abstracted Result [facility] HEALTH MAINTENANCE Final Result * Colonoscopy (12/18/2021) [facility] Colonoscopy Abstracted, No Interpretation Anatomical Region Laterality Modality Other us Historical Provider HEALTH MAINTENANCE Final Result from Last 3 Months or Most Recently Relevant to Health Maintenance Insurance [place] [employer] [facility] Care Teams Oyster Bed Worker Relationship Specialty Start Date End Date Ольга Gayle MD [address] [place] [address] PCP - General Internal Medicine 02/14/25
== END 2025-03-06 15:47 | disposition home or self-care (01) ==
LOC: HO.HMCFM 15:08
PROVIDERS: PCP Internal Medicine; Visit Provider Internal Medicine
DX: E11.65 Type 2 diabetes mellitus with hyperglycemia (principal)

== ENCOUNTER → 2025-03-06 15:07 | Outpatient (BNVA) | payer OTHER, SELFPAY | PROVIDERS: PCP Internal Medicine; Visit Provider Internal Medicine | DX: I10 Essential (primary) hypertension (principal); E78.5 Hyperlipidemia, unspecified; E11.65 Type 2 diabetes mellitus with hyperglycemia; Z79.82 Long term (current) use of aspirin; Z79.84 Long term (current) use of oral hypoglycemic drugs; Z79.899 Other long term (current) drug therapy; Z13.31 Encounter for screening for depression | CPT/HCPCS: 83036; 96127 ==

== ENCOUNTER 2025-06-12 14:26 | Outpatient (AMB) | payer OTHER, SELFPAY ==
--- NOTE | 2025-06-12 14:29 | MHC.PC.OV ---
Vital Signs 06/12/25 14:30 Height 6 ft 2 in Weight 271 lb BMI 34.8 BP 104/72 Blood Pressure Location Rt brachial Position Sitting Respiration 16 Pulse 83 Pulse Source Pulse Oximeter Temp 98 F Temp Source Oral Pulse Oximetry (%) 93 Oxygen Delivery Method Room Air Intake Visit Reasons: DM Intake Note: Diabetes follow up. Ozempic is causing nausea and vomiting over the past 3 weeks. sxs subsided when stopping. Publications Writer Required: No Allergies semaglutide (From Ozempic) Allergy (Intermediate, Verified 06/12/25 14:33) Nausea and Vomiting Penicillins Allergy (Unknown, Verified 06/12/25 14:31) Unknown adhesive bandage Allergy (Unknown, Uncoded 06/12/25 14:31) urticaria Tobacco use date assessed: 06/12/25 Dental Screening Dental Screen Date: 12/27/24 HPI HPI Comments History of Present Illness Details 59 year old male with a past medical history of diabetes, hypertension, hyperlipidemia presenting for follow up DM: On glyburide, jardiance, ozempic 2mg. A1C is 7.3% from 9%. Last A1C was ~1 month ago. Believes it was 9%. On valerie 2 sensors. Did not bring reader today. Lost 4 pounds since his last visit. CV: on toprol 25mg, crestor 20mg, ASA Colon cancer: [facility] ~ 1 year ago ROS CONSTITUTIONAL: Denies weight loss, fever and chills. HEENT: Denies changes in vision and hearing. RESPIRATORY: Denies SOB and cough. CV: Denies palpitations and CP GI: Denies abdominal pain, nausea, vomiting and diarrhea. : Denies dysuria and urinary frequency. MSK: Denies new myalgia and joint pain. SKIN: Denies rash and pruritus. NEUROLOGICAL: Denies headache PSYCHIATRIC: Denies recent changes in mood. PHYSICAL EXAM: GENERAL: Alert and oriented x 3. NAD EYES: EOMI. Anicteric. HENT: Moist mucous membranes. No scleral icterus. No cervical lymphadenopathy. LUNGS: Clear to auscultation bilaterally. CARDIOVASCULAR: Regular rate and rhythm. No murmur. No JVD. ABDOMEN: Soft, non-tender +bs EXTREMITIES: No edema. Non-tender. SKIN: No rashes or lesions. Warm. NEUROLOGIC: No focal neurological deficits. CN II-XII grossly intact PSYCHIATRIC: Cooperative. Appropriate mood and affect [facility] Surgical History No pertinent past surgical history Family History Mother Diabetes mellitus Myocardial infarction Skin cancer Sister Myocardial infarction Brother Myocardial infarction Social History (Updated 06/12/25 @ 14:34 by Katy Almendarez CMA) Housing: House Alcohol intake: never Patient Tobacco Use Status: Former Tobacco user Cigarette Packs Per Day: 2 Years Smoked: 20 e-Cigarette/Vaping Use: Never Used Second Hand Smoke Exposure: No Substance Use Type: Marijuana service: No Current occupational status: employed Current occupation: senior qc technician Current occupational exposures/hazards: No Cognitive needs: No Hearing needs: No Vision needs: No Questionnaire Thrive Questionnaire Date Thrive assessed: 02/28/25 I am a: Patient What is your living situation today?: I have a steady place to live Within the past 12 months, did the food you bought not last and you didn't have the money to get more?: Often true Within the past 12 months, did you worry whether your food would run out before you got money to buy more?: Never true Do you have trouble paying for medicines?: No Do you have trouble getting transportation to medical appointments?: No Do you have trouble paying your heating and electricity bill?: No Do you have trouble taking care of your child, family member or friend?: No Do you have trouble with day-to-day activities such as bathing, preparing meals, shopping, managing finances, etc.?: No Are you currently unemployed and looking for a job?: No Are you interested in more education?: No Please select the resources that you would like help with: None Currently or been in a relationship where the following occur: No concerns reported THRIVE Score: 1 AUDIT C Alcohol Use Questionnaire (AUDIT-C) 1. How often do you have a drink containing alcohol?: Never 3. How often do you have six or more drinks on one occasion?: Never Total Score: 0 Physical exam (Primary Care) Vital Signs: Last Vital Signs Temp 98 F 06/12/25 14:30 Pulse 83 06/12/25 14:30 Resp 16 06/12/25 14:30 BP 104/72 06/12/25 14:30 Pulse Ox 93 06/12/25 14:30 Oxygen Delivery Method Room Air 06/12/25 14:30 BMI result Body Mass Index 34.8 Tobacco/Smoking Status: Tobacco use Status Tobacco use date assessed 06/12/25 06/12/25 14:38 Patient Tobacco Use Status Former Tobacco user 06/12/25 14:34 e-Cigarette/Vaping Use Never Used 06/12/25 14:34 Thrive Assessment: Date of Thrive Assessment Date Thrive assessed 02/28/25 06/12/25 14:33 Currently or been in a relationship where the following occur: No concerns reported Results AMB Hemoglobin A1c AMB Hemoglobin A1c 7.8 % Last Edit by aKty Almendarez CMA on 06/12/25 14:47 Results Reviewed Results Reviewed: Laboratory Last Values Hgb A1c (Clinic) 7.8 % (4.0-6.0) H 06/12/25 14:42 Coding Diagnoses Type 2 diabetes mellitus with hyperglycemia, without long-term current use of insulin E11.65 Diabetes mellitus type: type 2 Diabetes mellitus parts counterman insulin use: without parts counterman use Diabetes mellitus complication status: with hyperglycemia Assessment & Plan Assessment & Plan (1) Diabetes: Code(s): E11.9 - Type 2 diabetes mellitus without complications Category: Medical Qualifiers: Diabetes mellitus type: type 2 Diabetes mellitus parts counterman insulin use: without parts counterman use Diabetes mellitus complication status: with hyperglycemia Qualified Code(s): E11.65 - Type 2 diabetes mellitus with hyperglycemia Orders: Orders AMB Hemoglobin A1c Today E11.65 - Type 2 diabetes mellitus with hyperglycemia Medications: New Toujeo Max U-300 SoloStar (insulin glargine U-300 conc) 20 units (0.0667 mL) subcut BEDTIME 6 mL 3RF NS E11.65 - Type 2 diabetes mellitus with hyperglycemia pen needle, diabetic (1st Tier Unifine Pentips) As directed 100 ea 3RF E11.65 - Type 2 diabetes mellitus with hyperglycemia metoprolol succinate ER 25 mg PO DAILY 90 tabs 3RF Discontinued glyburide Discontinued Reason: Doctor's Order 5 mg PO DAILY 90 tabs 3RF
[2025-06-12 14:30] VITALS: BP 104/72; PULSE 83; RESP 16; TEMP 36.6; O2SAT 93; BMI 34.8
--- OUTSIDE RECORDS SUMMARY | 2025-06-12 17:46 | XMS_ITS | Clinical Summary ---
Author Organization [facility] Address [address] [place] [address] Care Team Providers Care Die Fitter Name Role Phone Alma Wasserman MD Primary Care Provider [phone] Allergies Active Allergy Reactions Criticality Noted Date [...] age to complete this topic Care Teams Die Fitter Relationship Specialty Start Date End Date [facility], Al[facility] A, MD [address] [place] [address] PCP - General Internal Medicine 07/23/17
--- OUTSIDE RECORDS SUMMARY | 2025-06-12 17:46 | XMS_ITS | Clinical Summary ---
Author Organization [address] Address [address] [place] [phone] Phone Care Team Providers Care Certified Hyperbaric Technologist Name Role Phone Ольга Gayle MD Primary Care Provider [phone] Allergies Active Allergy Reactions Criticality Noted Date [...] with CKD stage 3 a nd hypertension ([facility] V24, [facility] V28) 09/22/2023 Depression 12/24/2010 Overview (04/14/2024): Receiving therapy Surgical History Surgery Date Site/Laterality Comments OTHER SURGICAL HISTORY PROCEDURE: [place] RPR PARAESOPH HIATAL HERNIA THORCOABDOM W/MESH KNEE ARTHROSCOPY W/ MENISCAL REPAIR PROCEDURE: [place] ARTHROSCOPY KNEE W/MENISCUS RPR MEDIAL/LATERAL; COMMENT: left knee Medical History Medical History Date Comments Hemothorax on right DX:Hemothora x on right; COMMENT: spontaneous x 2 AZAEL (obstructive sleep apnea) DX :AZAEL (obstructive sleep apnea) Essential (primary) hypertension DX:Essential (primary) hypertension Type 2 DM with CKD stage 3 a nd hypertension ([facility]/HCC V24, [facility]/HCC V28) DX:Type 2 DM w ith CKD stage 3 and hypertension (HCC) Family History Relation Name Status Comments Father Alive Brain tmr benig n, CAD s/p quadruple bypass Mother Alive DM 2, CAD with first IN in 60s Sister Alive DM 2 Social History Tobacco Use Types Packs/Day Years Used Date Smoking Tobacco: Former Cigarettes 7 0 07/13/1978 - 07/13/1985 Tobacco Cessation:Counseling Given: [...] 3:00 PM EST Office Visit Nephrology - [place] [address] [place] [phone] [address] Veloz MD 100 [facility] [address] [place] [address] Health Maintenance Due Date Last Done Comments Hepatitis B Vaccines (1 of 3 - 19+ 3-dose series) 1984 Pneumococcal Vaccine: 50+ Years (1 of 2 - PCV) 1984 Zoster Vaccines (1 of 2) 1984 RSV Immunization Adult Patients (1 - Risk 50-74 years 1-dose series) 12/17/2015 COVID-19 Vaccine (3 - Modern a risk [...] (2 - Td or Tdap) 12/10/2032 12/10/2022 HIB Vaccines Aged Out No longer eligi [...] Maintenance Results * Diabetes Foot Exam (03/02/2024) Diabetes: Annual Foot Exam Abstracted us Historical Provider MD HEALTH MAINTENANCE Final Result * Annual BMP Blood Test (02/18/2024) [facility] Annual BMP Blood Test Abstracted Result [facility] Provider HEALTH MAINTENANCE Final Result * (ABNORMAL) Hemoglobin A1c (02/18/2024) [facility] Hemoglobin A1C 10.3(A) <=6.5 % Blood Venous blood specimen / Unknown Result [facility] Provider MD LAB BLOOD ORDERABLES Willa l Result * Urine Albumin Creatinine Ratio (10/16/2023) [facility] Urine Albumin Creatinine Ratio Abstracted Result [facility] Provider HEALTH MAINTENANCE Final Result * (ABNORMAL) Lipid panel (10/16/2023) [facility] LDL/HDL Ratio 4 0 - 4 Triglycerides 268(A) 0 - 150 mg/dL Cholesterol 155 0 - 200 mg/dL HDL 37(A) >=40 mg/dL LDL Cholesterol 65 0 - 100 mg/dL Blood Venous blood specimen / Unknown Result [facility] Provider LAB BLOOD ORDERABLES Willa l Result * Diabetes Eye Exam (07/28/2023) [facility] Diabetes: Annual Retina Eye Exam Abstracted Result [facility] Provider HEALTH MAINTENANCE Final Result * Colonoscopy (12/18/2021) [facility] Colonoscopy Abstracted, No Interpretation Anatomical Region Laterality Modality Other Result [facility] Provider HEALTH MAINTENANCE Final Result from Last 3 Months or Most Recently Relevant to Health Maintenance Insurance [employer] [facility] Care Teams Certified Hyperbaric Technologist Relationship Specialty Start Date End Date Ольга Gayle MD [address] [place] [address] PCP - General Internal Medicine 02/14/25
== END 2025-06-12 14:59 | disposition home or self-care (01) ==
LOC: HO.HMCFM 14:27
PROVIDERS: PCP Internal Medicine; Visit Provider Internal Medicine
DX: E11.65 Type 2 diabetes mellitus with hyperglycemia (principal)

== ENCOUNTER → 2025-06-12 14:26 | Outpatient (BNVA) | payer OTHER, SELFPAY | PROVIDERS: PCP Internal Medicine; Visit Provider Internal Medicine | DX: E11.65 Type 2 diabetes mellitus with hyperglycemia (principal); I10 Essential (primary) hypertension; E78.5 Hyperlipidemia, unspecified; Z79.82 Long term (current) use of aspirin; Z79.899 Other long term (current) drug therapy | CPT/HCPCS: 83036 ==